=== PATIENT | male | born 2000 | race Caucasian/White ===

== ENCOUNTER 2024-04-13 11:54 | Emergency (ER) | payer SELFPAY ==
[2024-04-13] MEDS ORDERED: Ketorolac Tromethamine 30 MG (1 mL) VIAL ONE (12:21)
[2024-04-13] MEDS ORDERED: Ondansetron PF 4 MG/2 ML Vial ONE (12:21)
[2024-04-13] MEDS ORDERED: Dicyclomine 20 MG/2 ML VIAL ONE (12:25)
[2024-04-13 12:29] LABS: #Basophils 0.04 10x3/uL (0.0-0.2); %Basophils 0.3 % (0.0-1.0); %Eosinophils 0.3 % (0.0-10.0); %Lymphocytes 9.1 % (21.0-51.0); %Monocytes 6.4 % (0.0-10.0); %Neutrophils 83.6 % (42.0-75.0); Hematocrit 41.4 % (42.0-52.0); Mean Corpuscular HGB CONC 36.2 g/dL (32.0-36.0); Mean Corpuscular Hemoglobin 30.5 pg (27.0-31.0); Mean Corpuscular Volume 84.1 fL (78.0-98.0); Mean Platelet Volume 10.4 fL (7.4-10.4); Platelet Count 269 10x3/uL (130-400); RBC Distribution Width 11.9 % (11.5-14.5); Red Blood Cell (RBC) Count 4.92 mill/uL (4.70-6.10)
[2024-04-13 12:51] LABS: ALT (SGPT) 31 U/L (8-55); AST (SGOT) 17 U/L (5-34); Albumin 4.5 g/dL (3.5-5.0); Alkaline Phosphatase 64 U/L (40-110); Anion Gap 16 mmol/L (10-20); BUN (Urea Nitrogen) 11 mg/dL (8.9-20.6); Bilirubin, Total 0.5 mg/dL (0.2-1.2); Calc. Creatinine Clearance 0 mL/min (70-130); Calcium 9.6 mg/dL (7.8-10.44); Carbon Dioxide 21 mmol/L (22-29); Chloride 104 mmol/L (98-107); Estimated GFR 125; Globulin 3.1 g/dL (2.4-3.5); Glucose 105 mg/dL (70-105); Lipase 11 U/L (8-78); Potassium 2.9 mmol/L (3.5-5.1); Protein, Total 7.6 g/dL (6.0-8.3); Sodium 138 mmol/L (136-145)
[2024-04-13 13:59] LABS: Bacteria/HPF None Seen HPF (None Seen); Bilirubin Negative (Negative); Blood, Urine Negative (Negative); CAUTI Indications for Culture Pelvic or flank pain; Clarity Extra Turbid (Clear); Glucose, Urine (Dipstick) Normal (Negative); Ketone, Urine 10 mg/dL (Negative); Leukocyte Negative Leu/uL (Negative); Nitrite Negative (Negative); Protein, Urine (Dipstick) 10 mg/dL (Neg-Trace); RBC/HPF None Seen HPF (0-3); Specific Gravity, Urine 1.023 (1.002-1.036); Squamous Epithelial None Seen HPF (0-3); Urobilinogen Normal mg/dL (Less than 2); WBC/HPF None Seen HPF (0-3); pH, Urine 7.5 (5.0-9.0)
[2024-04-13 14:00] LABS: Urine Culture Reflex No No
[2024-04-13] MEDS ORDERED: Potassium Bicarbonate/Cit Ac 20 MEQ TAB ONE (14:26)
[2024-04-13 15:29] LABS: Lactic Acid 1.94 mmol/L (0.5-2.2)
== END 2024-04-13 16:03 | disposition home or self-care (01) ==
LOC: ERS 11:54
DX: A08.4 Viral intestinal infection, unspecified (principal)
CPT/HCPCS: 36415; 74177; 80053; 81001; 83605; 83690; 85025; 96361; 96372; 96374; 96375; J1885; J2405